=== PATIENT | female | born 1995 | race Caucasian/White ===

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

== ENCOUNTER 2017-01-30 22:54 | Emergency (ER) | payer SELFPAY ==
[~2017-01-30] VITALS: Ht 154.9 cm; Wt 61.7 kg
[2017-01-30 23:02] VITALS: BP 105/77
[2017-01-30] MEDS ORDERED: ZYRTEC10 M3 PO (23:02)
[2017-01-30 23:31] LABS: BASO # 0.1 10*3/uL (0.0-0.1); BASO % 0.8 % (0.0-1.0); EOS # 0.2 10*3/uL (0.0-0.4); EOS % 1.8 % (1.0-4.0); HEMATOCRIT 36.3 % (37.0-47.0); HEMOGLOBIN 11.8 g/dl (12.0-16.0); LYMPH # 2.9 10*3/uL (1.3-4.4); LYMPH % 31.9 % (27.0-41.0); MEAN CORPUSCULAR HGB 30.9 pg (27.0-31.0); MEAN CORPUSCULAR HGB CONC 32.5 g/dl (33.0-37.0); MEAN PLATELET VOLUME 10.1 fl (9.6-12.3); MONO # 0.7 10*3/uL (0.1-1.0); MONO % 7.4 % (3.0-9.0); NEUT # 5.2 10*3/uL (2.3-7.9); NEUT % 57.9 % (47.0-73.0); PLATELET COUNT AUTOMATED 281 10*3/uL (130-400); RED BLOOD COUNT 3.82 10*6/uL (4.10-5.10); RED CELL DISTRI WIDTH 12.5 % (0-14.5); WHITE BLOOD COUNT 8.9 10*3/uL (4.8-10.8)
[2017-01-30 23:46] LABS: ALBUMIN 3.9 gm/dl (3.1-4.5); ALKALINE PHOSPHATASE 85 U/L (45-117); BILIRUBIN, TOTAL 0.1 mg/dl (0.2-1.0); BUN 16 mg/dl (7-24); C-REACTIVE PROTEIN < 0.29 MG/DL (0-0.3); CARBON DIOXIDE 28 mmol/L (21-32); CHLORIDE 103 mmol/L (98-107); EST GLOM FILT AFRICAN AMERICAN > 60 ml/min; GLUCOSE 97 mg/dL (65-99); POTASSIUM 3.7 mmol/L (3.5-5.1); SGOT/AST 20 IU/L (3-35); SGPT/ALT 25 U/L (12-78); SODIUM 142 mmol/L (136-145); TOTAL PROTEIN 6.9 gm/dL (6.4-8.2)
[2017-01-31] MEDS ORDERED: Motrin,Rufen400 MG PO (01:16)
[2017-01-31] MEDS ORDERED: ZOFRAN ODT4 MG SL (01:19)
[2017-01-31 01:35] LABS: BILIRUBIN 1+ (NEGATIVE); BLOOD 3+ (NEGATIVE); CLARITY SL CLOUDY (CLEAR); COLOR ORANGE (YELLOW); GLUCOSE TRACE (NEGATIVE); KETONE TRACE (NEGATIVE); LEUKO ESTERASE NEGATIVE (NEGATIVE); NITRITE POSITIVE (NEGATIVE); PROTEIN 2+ (NEGATIVE); UROBILINOGEN >= 8.0 E.U./dl (0.2-1.0)
[2017-01-31 01:48] LABS: BACTERIA TRACE; RBC 31-40 rbc/hpf (0-2); URINE REFLEX COMMENT YES (NO); WBC 0-2 wbc/hpf (0-5)
== END 2017-01-31 01:45 | disposition home or self-care (01) ==
LOC: ED 22:54
PROVIDERS: Emergency Medicine Emergency Medical Services
DX: S39.012A Strain of muscle, fascia and tendon of lower back, initial encounter (principal); K29.00 Acute gastritis without bleeding; Z88.1 Allergy status to other antibiotic agents; Z79.899 Other long term (current) drug therapy; X58.XXXA Exposure to other specified factors, initial encounter; Y93.89 Activity, other specified; Y92.89 Other specified places as the place of occurrence of the external cause; Y99.9 Unspecified external cause status

== ENCOUNTER 2017-03-14 15:16 | Emergency (ER) | payer SELFPAY ==
[~2017-03-14] VITALS: Wt 54.4 kg
[~2017-03-14 15:16] MED LIST changes: +ZYRTEC10 M3 PO
[2017-03-14 15:24] VITALS: BP 153/67
[2017-03-14 16:01] LABS: BILIRUBIN NEGATIVE (NEGATIVE); BLOOD TRACE-INTACT (NEGATIVE); CLARITY SL CLOUDY (CLEAR); COLOR YELLOW (YELLOW); GLUCOSE NEGATIVE (NEGATIVE); KETONE TRACE (NEGATIVE); LEUKO ESTERASE 1+ (NEGATIVE); NITRITE POSITIVE (NEGATIVE)
[2017-03-14 16:11] LABS: MUCOUS 1+
[2017-03-14 16:12] LABS: BACTERIA 2+
== END 2017-03-15 07:13 | disposition home or self-care (01) ==
LOC: ED 15:16
PROVIDERS: Physician Assistant
DX: N30.01 Acute cystitis with hematuria (principal); Z79.899 Other long term (current) drug therapy; Z88.8 Allergy status to other drugs, medicaments and biological substances; Z88.1 Allergy status to other antibiotic agents

== ENCOUNTER 2017-04-09 15:40 | Emergency (ER) | payer SELFPAY ==
[~2017-04-09] VITALS: Wt 56.7 kg
[2017-04-09 16:18] VITALS: BP 118/74
[2017-04-09] MEDS ORDERED: Motrin,Rufen800 MG PO (18:18)
== END 2017-04-09 18:23 | disposition home or self-care (01) ==
LOC: ED 15:40
DX: S93.401A Sprain of unspecified ligament of right ankle, initial encounter (principal); Z88.1 Allergy status to other antibiotic agents; W18.39XA Other fall on same level, initial encounter; Y93.89 Activity, other specified; Y92.89 Other specified places as the place of occurrence of the external cause; Y99.8 Other external cause status

== ENCOUNTER 2017-04-30 00:39 | Emergency (ER) | payer SELFPAY ==
[~2017-04-30] VITALS: Ht 162.5 cm; Wt 56.7 kg
[2017-04-30 00:43] VITALS: BP 141/76
[2017-04-30] MEDS ORDERED: BROMFED DM COU118 M2 PO (01:37)
== END 2017-04-30 01:49 | disposition home or self-care (01) ==
LOC: ED 00:39
DX: J06.9 Acute upper respiratory infection, unspecified (principal); Z88.1 Allergy status to other antibiotic agents

== ENCOUNTER 2017-05-04 18:57 | Emergency (ER) | payer SELFPAY ==
[~2017-05-04] VITALS: Ht 162.5 cm; Wt 56.7 kg
[~2017-05-04 18:57] MED LIST changes: +BROMFED DM COU118 M2 PO
[2017-05-04 19:01] VITALS: BP 138/90
== END 2017-05-04 21:10 | disposition home or self-care (01) ==
LOC: ED 18:57
DX: S13.9XXA Sprain of joints and ligaments of unspecified parts of neck, initial encounter (principal); S09.90XA Unspecified injury of head, initial encounter; R07.81 Pleurodynia; M25.511 Pain in right shoulder; M25.512 Pain in left shoulder; Z88.1 Allergy status to other antibiotic agents; Y04.0XXA Assault by unarmed brawl or fight, initial encounter; Y93.89 Activity, other specified; Y92.410 Unspecified street and highway as the place of occurrence of the external cause; Y99.8 Other external cause status

== ENCOUNTER 2017-06-11 00:28 | Emergency (ER) | payer SELFPAY ==
[~2017-06-11] VITALS: Ht 162.5 cm; Wt 56.7 kg
[2017-06-11 00:35] VITALS: BP 146/83
[2017-06-11] MEDS ORDERED: Motrin,Rufen800 MG PO (01:20)
== END 2017-06-11 01:46 | disposition home or self-care (01) ==
LOC: ED 00:28
DX: M79.671 Pain in right foot (principal); Z88.1 Allergy status to other antibiotic agents; Z88.8 Allergy status to other drugs, medicaments and biological substances

== ENCOUNTER 2017-08-17 08:58 | Emergency (ER) | payer SELFPAY ==
[~2017-08-17] VITALS: Wt 55.3 kg
[2017-08-17 09:10] VITALS: BP 115/76
[2017-08-17 09:26] LABS: BASO # 0.1 10*3/uL (0.0-0.1); BASO % 0.7 % (0.0-1.0); EOS % 0.3 % (1.0-4.0); HEMATOCRIT 38.3 % (37.0-47.0); HEMOGLOBIN 12.8 g/dl (12.0-16.0); LYMPH # 0.8 10*3/uL (1.3-4.4); LYMPH % 10.9 % (27.0-41.0); MEAN CELL VOLUME 93.4 fl (81.0-99.0); MEAN CORPUSCULAR HGB 31.2 pg (27.0-31.0); MEAN CORPUSCULAR HGB CONC 33.4 g/dl (33.0-37.0); MEAN PLATELET VOLUME 9.9 fl (9.6-12.3); MONO # 1.2 10*3/uL (0.1-1.0); MONO % 15.6 % (3.0-9.0); NEUT # 5.5 10*3/uL (2.3-7.9); NEUT % 72.4 % (47.0-73.0); PLATELET COUNT AUTOMATED 244 10*3/uL (130-400); RED CELL DISTRI WIDTH 11.9 % (0-14.5); WHITE BLOOD COUNT 7.5 10*3/uL (4.8-10.8)
[2017-08-17 09:41] LABS: ALBUMIN 4.1 gm/dl (3.1-4.5); ALKALINE PHOSPHATASE 82 U/L (45-117); BUN 7 mg/dl (7-24); CHLORIDE 103 mmol/L (98-107); CREATININE 0.78 mg/dL (0.55-1.02); POTASSIUM 3.6 mmol/L (3.5-5.1); SGOT/AST 8 IU/L (3-35); SGPT/ALT 12 U/L (12-78); SODIUM 139 mmol/L (136-145); TOTAL PROTEIN 7.3 gm/dL (6.4-8.2)
[2017-08-17] MEDS ORDERED: PREDNISONE10 MG PO (09:48)
[2017-08-17] MEDS ORDERED: ROBITUSSIN DM 105 ML PO (09:48)
[2017-08-17] MEDS ORDERED: FLONASE ALLERG9.9 ML NAS (09:48)
[2017-08-17] MEDS ORDERED: CLARITIN10 MG PO (09:48)
== END 2017-08-17 10:13 | disposition home or self-care (01) ==
LOC: ED 08:58
PROVIDERS: Nurse Practitioner Family
DX: J20.9 Acute bronchitis, unspecified (principal); Z88.8 Allergy status to other drugs, medicaments and biological substances; Z88.1 Allergy status to other antibiotic agents

== ENCOUNTER 2018-01-12 00:59 | Emergency (ER) | payer SELFPAY ==
[~2018-01-12] VITALS: Ht 162.5 cm; Wt 49.9 kg
[~2018-01-12 00:59] MED LIST changes: +FLONASE ALLERG9.9 ML NAS; +PREDNISONE10 MG PO; +ROBITUSSIN DM 105 ML PO
[2018-01-12 01:00] VITALS: BP 118/86
[2018-01-12] MEDS ORDERED: IBUPROFEN600 MG PO (02:20)
== END 2018-01-12 02:23 | disposition home or self-care (01) ==
LOC: ED 00:59
DX: S63.501A Unspecified sprain of right wrist, initial encounter (principal); Z79.899 Other long term (current) drug therapy; Z88.6 Allergy status to analgesic agent; Z88.1 Allergy status to other antibiotic agents; W19.XXXA Unspecified fall, initial encounter; Y93.89 Activity, other specified; Y92.89 Other specified places as the place of occurrence of the external cause; Y99.9 Unspecified external cause status

== ENCOUNTER 2018-05-11 09:07 | Emergency (ER) | payer MEDICARE, MEDICAID, OTHER ==
[~2018-05-11] VITALS: Ht 162.5 cm; Wt 57.2 kg
[~2018-05-11 09:07] MED LIST changes: +CEPHALEXIN500 M1 PO; +CIPRO500 MG PO; +DOXYCYCLINE100 M3 PO; +IBU800 MG PO; +IBUPROFEN600 MG PO; +PERCOCET 5-3251 EACH PO
[2018-05-11 09:10] VITALS: BP 144/89
[2018-05-11] MEDS ORDERED: CHLORZOXAZONE500 M2 PO (09:20)
[2018-05-11] MEDS ORDERED: NAPROSYN500 MG PO (09:20)
== END 2018-05-11 10:42 | disposition home or self-care (01) ==
LOC: ED 09:07
DX: T14.8XXA Other injury of unspecified body region, initial encounter (principal); R03.0 Elevated blood-pressure reading, without diagnosis of hypertension; R55 Syncope and collapse; G89.29 Other chronic pain; Z88.1 Allergy status to other antibiotic agents; Z88.2 Allergy status to sulfonamides; Z87.442 Personal history of urinary calculi; V49.9XXA Car occupant (driver) (passenger) injured in unspecified traffic accident, initial encounter; Y93.I9 Activity, other involving external motion; Y92.488 Other paved roadways as the place of occurrence of the external cause; Y99.8 Other external cause status

== ENCOUNTER 2018-05-14 14:43 | Emergency (ER) | payer MEDICARE, MEDICAID ==
[~2018-05-14] VITALS: Ht 162.5 cm; Wt 57.2 kg
[~2018-05-14 14:43] MED LIST changes: +CHLORZOXAZONE500 M2 PO; +NAPROSYN500 MG PO
[2018-05-14 14:44] VITALS: BP 146/101
[2018-05-14] MEDS ORDERED: ZYRTEC10 MG PO (15:53)
[2018-05-14] MEDS ORDERED: FLONASE ALLERG9.9 ML NAS (15:53)
== END 2018-05-14 16:00 | disposition home or self-care (01) ==
LOC: ED 14:43
DX: S50.12XA Contusion of left forearm, initial encounter (principal); J30.9 Allergic rhinitis, unspecified; G89.29 Other chronic pain; Z88.1 Allergy status to other antibiotic agents; Z88.2 Allergy status to sulfonamides; Z79.1 Long term (current) use of non-steroidal anti-inflammatories (NSAID); Z79.899 Other long term (current) drug therapy; Z87.442 Personal history of urinary calculi; W10.8XXA Fall (on) (from) other stairs and steps, initial encounter; Y93.89 Activity, other specified; Y92.89 Other specified places as the place of occurrence of the external cause; Y99.8 Other external cause status

== ENCOUNTER 2018-06-26 18:09 | Emergency (ER) | payer MEDICARE, MEDICAID ==
[~2018-06-26] VITALS: Ht 162.5 cm; Wt 59.0 kg
[2018-06-26 18:13] VITALS: BP 123/65
== END 2018-06-26 21:04 | disposition home or self-care (01) ==
LOC: ED 18:09
DX: M25.562 Pain in left knee (principal); R20.0 Anesthesia of skin; R20.2 Paresthesia of skin; Z88.1 Allergy status to other antibiotic agents; Z88.2 Allergy status to sulfonamides; Z79.899 Other long term (current) drug therapy

== ENCOUNTER 2018-08-17 01:39 | Emergency (ER) | payer MEDICARE, MEDICAID ==
[~2018-08-17] VITALS: Ht 162.5 cm; Wt 57.2 kg
[2018-08-17 01:40] VITALS: BP 115/64
[2018-08-17] MEDS ORDERED: BROMFED DM COU118 M2 PO (01:55)
== END 2018-08-17 01:57 | disposition home or self-care (01) ==
LOC: ED 01:39
DX: J06.9 Acute upper respiratory infection, unspecified (principal); Z88.1 Allergy status to other antibiotic agents; Z88.2 Allergy status to sulfonamides

== ENCOUNTER 2018-10-14 22:32 | Emergency (ER) | payer MEDICARE, MEDICAID ==
[~2018-10-14] VITALS: Ht 162.5 cm; Wt 62.6 kg
[2018-10-14 22:35] VITALS: BP 125/76
[2018-10-15] MEDS ORDERED: TESSALON PERLE100 M1 PO (00:43)
[2019-02-14] MEDS ORDERED: VITAMIN D5000 UNI1 PO (10:46)
[2019-02-14] MEDS ORDERED: MECLIZINE HCL25 M2 PO (10:46)
[2019-02-14] MEDS ORDERED: CIPRO500 MG PO (10:46)
[2019-02-14] MEDS ORDERED: FLAGYL500 MG PO (10:46)
== END 2018-10-15 01:08 | disposition home or self-care (01) ==
LOC: ED 22:32
DX: S80.02XA Contusion of left knee, initial encounter (principal); J06.9 Acute upper respiratory infection, unspecified; Z88.1 Allergy status to other antibiotic agents; Z88.2 Allergy status to sulfonamides; X58.XXXA Exposure to other specified factors, initial encounter; Y93.89 Activity, other specified; Y92.89 Other specified places as the place of occurrence of the external cause; Y99.8 Other external cause status

== ENCOUNTER 2019-01-23 11:07 | Emergency (ER) | payer MEDICARE, OTHER ==
[~2019-01-23] VITALS: Ht 162.5 cm; Wt 61.2 kg
[2019-01-23 11:07] VITALS: BP 114/66
[~2019-01-23 11:07] MED LIST changes: +TESSALON PERLE100 M1 PO
[2019-01-23] MEDS ORDERED: CEPHALEXIN500 M1 PO (12:27)
[2019-02-14] MEDS ORDERED: CIPRO500 MG PO (10:46)
[2019-02-14] MEDS ORDERED: VITAMIN D5000 UNI1 PO (10:46)
[2019-02-14] MEDS ORDERED: FLAGYL500 MG PO (10:46)
[2019-02-14] MEDS ORDERED: MECLIZINE HCL25 M2 PO (10:46)
== END 2019-01-23 12:43 | disposition home or self-care (01) ==
LOC: ED 11:07
DX: S91.332A Puncture wound without foreign body, left foot, initial encounter (principal); Z88.8 Allergy status to other drugs, medicaments and biological substances; Z88.1 Allergy status to other antibiotic agents; Z88.2 Allergy status to sulfonamides; W25.XXXA Contact with sharp glass, initial encounter; Y93.89 Activity, other specified; Y92.89 Other specified places as the place of occurrence of the external cause; Y99.8 Other external cause status

== ENCOUNTER 2019-02-25 01:05 | Emergency (ER) | payer MEDICARE ==
[~2019-02-25] VITALS: Ht 162.5 cm; Wt 61.2 kg
[~2019-02-25 01:05] MED LIST changes: +FLAGYL500 MG PO; +MECLIZINE HCL25 M2 PO; +VITAMIN D5000 UNI1 PO
[2019-02-25 01:06] VITALS: BP 128/73
[2019-02-25] MEDS ORDERED: NEOSPORIN + P14.2 GM T (01:17)
== END 2019-02-25 01:22 | disposition home or self-care (01) ==
LOC: ED 01:05
DX: S61.217A Laceration without foreign body of left little finger without damage to nail, initial encounter (principal); Z88.1 Allergy status to other antibiotic agents; Z88.2 Allergy status to sulfonamides; W26.0XXA Contact with knife, initial encounter; Y93.89 Activity, other specified; Y92.89 Other specified places as the place of occurrence of the external cause; Y99.8 Other external cause status

== ENCOUNTER 2019-03-22 11:43 | Emergency (ER) | payer MEDICARE ==
[~2019-03-22] VITALS: Ht 162.5 cm; Wt 61.2 kg
[~2019-03-22 11:43] MED LIST changes: +NEOSPORIN + P14.2 GM T
[2019-03-22 11:46] VITALS: BP 140/77
[2019-03-22] MEDS ORDERED: AMOXICILLIN500 M2 PO (12:29)
[2019-03-22] MEDS ORDERED: ROBITUSSIN DM 105 ML PO (12:29)
[2019-03-22] MEDS ORDERED: FLONASE ALLERG9.9 ML NAS (12:29)
== END 2019-03-22 12:42 | disposition home or self-care (01) ==
LOC: ED 11:43
DX: J01.90 Acute sinusitis, unspecified (principal); F17.200 Nicotine dependence, unspecified, uncomplicated; Z88.1 Allergy status to other antibiotic agents; Z88.2 Allergy status to sulfonamides; Z79.899 Other long term (current) drug therapy; Z79.2 Long term (current) use of antibiotics

== ENCOUNTER 2019-04-19 04:33 | Emergency (ER) | payer MEDICARE, MEDICAID ==
[~2019-04-19] VITALS: Wt 57.2 kg
[2019-04-19 04:33] VITALS: BP 121/76
== END 2019-04-19 05:30 | disposition home or self-care (01) ==
LOC: ED 04:33
DX: S70.11XA Contusion of right thigh, initial encounter (principal); S60.221A Contusion of right hand, initial encounter; Z88.1 Allergy status to other antibiotic agents; Z88.2 Allergy status to sulfonamides; W18.39XA Other fall on same level, initial encounter; Y93.89 Activity, other specified; Y92.89 Other specified places as the place of occurrence of the external cause; Y99.8 Other external cause status

== ENCOUNTER 2019-08-08 19:21 | Emergency (ER) | payer MEDICARE ==
[~2019-08-08] VITALS: Ht 162.5 cm; Wt 57.2 kg
[2019-08-08 19:25] VITALS: BP 124/83
== END 2019-08-08 22:10 | disposition home or self-care (01) ==
LOC: ED 19:21
DX: S16.1XXA Strain of muscle, fascia and tendon at neck level, initial encounter (principal); M54.5 Low back pain; M25.561 Pain in right knee; M79.651 Pain in right thigh; Z88.1 Allergy status to other antibiotic agents; Z88.2 Allergy status to sulfonamides; W01.0XXA Fall on same level from slipping, tripping and stumbling without subsequent striking against object, initial encounter; Y93.89 Activity, other specified; Y92.89 Other specified places as the place of occurrence of the external cause; Y99.8 Other external cause status

== ENCOUNTER 2019-11-05 19:58 | Emergency (ER) | payer MEDICARE ==
[~2019-11-05] VITALS: Ht 162.5 cm; Wt 59.0 kg
[2019-11-05 20:03] VITALS: BP 128/91
[2019-11-05 20:35] LABS: CLARITY SL CLOUDY (CLEAR); COLOR YELLOW (YELLOW); GLUCOSE NEGATIVE (NEGATIVE)
[2019-11-05 20:37] LABS: BILIRUBIN NEGATIVE (NEGATIVE); BLOOD 2+ (NEGATIVE); KETONE NEGATIVE (NEGATIVE); LEUKO ESTERASE TRACE (NEGATIVE); NITRITE NEGATIVE (NEGATIVE); UROBILINOGEN 0.2 E.U./dl (0.2-1.0)
[2019-11-05 20:38] LABS: BACTERIA 2+; EPITHELIAL CELLS TNTC; YEAST 1+
[2019-11-05] MEDS ORDERED: ZOFRAN4 MG PO (20:55)
== END 2019-11-05 21:00 | disposition home or self-care (01) ==
LOC: ED 19:58
PROVIDERS: Physician Assistant
DX: R11.10 Vomiting, unspecified (principal); F32.9 Major depressive disorder, single episode, unspecified; Z88.8 Allergy status to other drugs, medicaments and biological substances; Z88.2 Allergy status to sulfonamides; Z79.899 Other long term (current) drug therapy; Z79.2 Long term (current) use of antibiotics

== ENCOUNTER 2019-11-29 22:38 | Emergency (ER) | payer MEDICARE ==
[~2019-11-29] VITALS: Ht 162.5 cm; Wt 72.6 kg
[2019-11-29 22:43] VITALS: BP 128/79
[2019-11-29 22:59] LABS: BILIRUBIN 1+ (NEGATIVE); BLOOD 3+ (NEGATIVE); CLARITY CLOUDY (CLEAR); COLOR YELLOW (YELLOW); GLUCOSE NEGATIVE (NEGATIVE); KETONE NEGATIVE (NEGATIVE); LEUKO ESTERASE NEGATIVE (NEGATIVE); NITRITE NEGATIVE (NEGATIVE); UROBILINOGEN 0.2 E.U./dl (0.2-1.0)
[2019-11-29 23:03] LABS: RBC TNTC rbc/hpf (0-2)
[2019-11-29 23:12] LABS: BASO # 0.1 10*3/uL (0.0-0.1); BASO % 0.8 % (0.0-1.0); EOS # 0.1 10*3/uL (0.0-0.4); EOS % 1.4 % (1.0-4.0); HEMATOCRIT 37.9 % (37.0-47.0); LYMPH # 2.2 10*3/uL (1.3-4.4); LYMPH % 26.9 % (27.0-41.0); MEAN CELL VOLUME 93.8 fl (81.0-99.0); MEAN CORPUSCULAR HGB 30.7 pg (27.0-31.0); MEAN CORPUSCULAR HGB CONC 32.7 g/dl (33.0-37.0); MEAN PLATELET VOLUME 10.2 fl (9.6-12.3); MONO # 0.8 10*3/uL (0.1-1.0); MONO % 9.7 % (3.0-9.0); PLATELET COUNT AUTOMATED 308 10*3/uL (130-400); RED BLOOD COUNT 4.04 10*6/uL (4.10-5.10); RED CELL DISTRI WIDTH 12.4 % (0-14.5); WHITE BLOOD COUNT 8.3 10*3/uL (4.8-10.8)
[2019-11-29 23:37] LABS: ALKALINE PHOSPHATASE 89 U/L (45-117); BUN 13 mg/dl (7-24); CHLORIDE 109 mmol/L (98-107); CREATININE 0.84 mg/dL (0.55-1.02); POTASSIUM 3.7 mmol/L (3.5-5.1); SGOT/AST 19 IU/L (3-35); SGPT/ALT 20 U/L (12-78); SODIUM 140 mmol/L (136-145); TOTAL PROTEIN 7.4 gm/dL (6.4-8.2)
[2019-11-29 23:39] LABS: B-hCG (QUALITATIVE) NEGATIVE (NEGATIVE)
[2019-11-30] MEDS ORDERED: Motrin,Rufen800 MG PO (00:16)
== END 2019-11-30 00:44 | disposition home or self-care (01) ==
LOC: ED 22:38
PROVIDERS: Emergency Medicine Emergency Medical Services
DX: S39.012A Strain of muscle, fascia and tendon of lower back, initial encounter (principal); Z88.1 Allergy status to other antibiotic agents; Z88.2 Allergy status to sulfonamides; Z87.440 Personal history of urinary (tract) infections; Z88.8 Allergy status to other drugs, medicaments and biological substances; X58.XXXA Exposure to other specified factors, initial encounter; Y93.89 Activity, other specified; Y92.89 Other specified places as the place of occurrence of the external cause; Y99.8 Other external cause status

== ENCOUNTER 2020-02-15 12:01 | Emergency (ER) | payer MEDICARE ==
[~2020-02-15] VITALS: Ht 162.5 cm; Wt 59.0 kg
[2020-02-15 12:09] VITALS: BP 120/73
[2020-02-15] MEDS ORDERED: METHOCARBAMOL500 M1 PO (15:23)
[2020-02-15] MEDS ORDERED: NAPROSYN500 MG PO (15:23)
== END 2020-02-15 16:16 | disposition home or self-care (01) ==
LOC: ED 12:01
DX: M43.6 Torticollis (principal); Z88.1 Allergy status to other antibiotic agents; Z88.2 Allergy status to sulfonamides

== ENCOUNTER 2020-03-05 05:43 | Emergency (ER) | payer MEDICARE ==
[~2020-03-05] VITALS: Ht 162.5 cm; Wt 57.2 kg
[~2020-03-05 05:43] MED LIST changes: +METHOCARBAMOL500 M1 PO
[2020-03-05 05:53] VITALS: BP 137/79
[2020-03-05 06:34] LABS: BASO # 0.1 10*3/uL (0.0-0.1); BASO % 0.5 % (0.0-1.0); EOS # 0.1 10*3/uL (0.0-0.4); EOS % 1.1 % (1.0-4.0); HEMATOCRIT 38.7 % (37.0-47.0); LYMPH # 2.1 10*3/uL (1.3-4.4); LYMPH % 22.8 % (27.0-41.0); MEAN CELL VOLUME 92.8 fl (81.0-99.0); MEAN CORPUSCULAR HGB 30.2 pg (27.0-31.0); MEAN CORPUSCULAR HGB CONC 32.6 g/dl (33.0-37.0); MEAN PLATELET VOLUME 10.2 fl (9.6-12.3); MONO # 0.9 10*3/uL (0.1-1.0); MONO % 9.5 % (3.0-9.0); NEUT # 6.2 10*3/uL (2.3-7.9); NEUT % 65.8 % (47.0-73.0); PLATELET COUNT AUTOMATED 292 10*3/uL (130-400); RED BLOOD COUNT 4.17 10*6/uL (4.10-5.10); RED CELL DISTRI WIDTH 12.2 % (0-14.5); WHITE BLOOD COUNT 9.4 10*3/uL (4.8-10.8)
[2020-03-05 06:52] LABS: ALKALINE PHOSPHATASE 89 U/L (45-117); BUN 10 mg/dl (7-24); CHLORIDE 109 mmol/L (98-107); CREATININE 0.93 mg/dL (0.55-1.02); LIPASE 73 U/L (73-393); POTASSIUM 3.4 mmol/L (3.5-5.1); SGOT/AST 9 IU/L (3-35); SGPT/ALT 14 U/L (12-78); SODIUM 140 mmol/L (136-145)
[2020-03-05 07:02] LABS: BACTERIA 3+; BILIRUBIN NEGATIVE (NEGATIVE); BLOOD 2+ (NEGATIVE); CALCIUM OXALATE CRYSTALS 2+; CLARITY CLOUDY (CLEAR); COLOR YELLOW (YELLOW); EPITHELIAL CELLS 21-30; GLUCOSE NEGATIVE (NEGATIVE); KETONE NEGATIVE (NEGATIVE); LEUKO ESTERASE NEGATIVE (NEGATIVE); NITRITE NEGATIVE (NEGATIVE); RBC 16-20 rbc/hpf (0-2); UROBILINOGEN 0.2 E.U./dl (0.2-1.0)
[2020-03-05] MEDS ORDERED: CEPHALEXIN500 M1 PO (08:17)
== END 2020-03-05 08:45 | disposition home or self-care (01) ==
LOC: ED 05:43
PROVIDERS: Emergency Medicine
DX: N39.0 Urinary tract infection, site not specified (principal); R11.2 Nausea with vomiting, unspecified; R19.7 Diarrhea, unspecified; Z88.1 Allergy status to other antibiotic agents; Z88.2 Allergy status to sulfonamides

== ENCOUNTER 2020-07-17 18:41 | Emergency (ER) | payer MEDICARE ==
[2020-07-17 18:48] VITALS: BP 126/74
[2020-07-17] MEDS ORDERED: Motrin,Rufen800 MG PO (21:36)
== END 2020-07-17 21:44 | disposition home or self-care (01) ==
LOC: ED 18:41
DX: S46.911A Strain of unspecified muscle, fascia and tendon at shoulder and upper arm level, right arm, initial encounter (principal); Z88.1 Allergy status to other antibiotic agents; Z88.2 Allergy status to sulfonamides; X58.XXXA Exposure to other specified factors, initial encounter; Y93.H1 Activity, digging, shoveling and raking; Y92.89 Other specified places as the place of occurrence of the external cause; Y99.8 Other external cause status

== ENCOUNTER 2021-10-16 18:41 | Emergency (ER) | payer MEDICARE ==
[~2021-10-16] VITALS: Ht 162.5 cm; Wt 59.0 kg
[2021-10-16 18:54] VITALS: BP 130/82
[2021-10-16 19:15] LABS: BASO % 0.5 % (0.0-1.0); EOS # 0.1 10*3/uL (0.0-0.4); EOS % 0.6 % (1.0-4.0); HEMATOCRIT 39.7 % (37.0-47.0); LYMPH # 1.7 10*3/uL (1.3-4.4); LYMPH % 20.6 % (27.0-41.0); MEAN CELL VOLUME 87.1 fl (81.0-99.0); MEAN CORPUSCULAR HGB 29.8 pg (27.0-31.0); MEAN CORPUSCULAR HGB CONC 34.3 g/dl (33.0-37.0); MEAN PLATELET VOLUME 10.4 fl (9.6-12.3); MONO # 0.8 10*3/uL (0.1-1.0); MONO % 9.3 % (3.0-9.0); NEUT # 5.7 10*3/uL (2.3-7.9); NEUT % 68.8 % (47.0-73.0); PLATELET COUNT AUTOMATED 313 10*3/uL (130-400); RED BLOOD COUNT 4.56 10*6/uL (4.10-5.10); RED CELL DISTRI WIDTH 11.9 % (0-14.5); WHITE BLOOD COUNT 8.2 10*3/uL (4.8-10.8)
[2021-10-16 19:31] LABS: BILIRUBIN Negative (Negative); BLOOD 1+ (Negative); CLARITY Turbid (Clear); COLOR Dark Yellow (Yellow); GLUCOSE Negative (Negative); KETONE 1+ (Negative); LEUKO ESTERASE 2+ (Negative); NITRITE Negative (Negative); PH 5.5 (4.5-8.0); SPECIFIC GRAVITY >= 1.030 (1.001-1.030)
[2021-10-16 19:35] LABS: ALKALINE PHOSPHATASE 93 U/L (45-117); BUN 9 mg/dl (7-24); CHLORIDE 106 mmol/L (98-107); POTASSIUM 3.4 mmol/L (3.5-5.1); SGOT/AST 10 IU/L (3-35); SGPT/ALT 17 U/L (12-78); SODIUM 139 mmol/L (136-145); TOTAL PROTEIN 7.6 gm/dL (6.4-8.2)
[2021-10-16 19:43] LABS: BACTERIA 2+; CALCIUM OXALATE CRYSTALS 2+; EPITHELIAL CELLS 16-20; WBC 21-30 wbc/hpf (0-5)
[2021-10-16] MEDS ORDERED: CEPHALEXIN500 M1 PO (19:52)
[2021-10-16] MEDS ORDERED: ZOFRAN4 MG PO (19:57)
== END 2021-10-16 20:17 | disposition home or self-care (01) ==
LOC: ED 18:41
PROVIDERS: Nurse Practitioner Family
DX: N39.0 Urinary tract infection, site not specified (principal); Z20.822 Contact with and (suspected) exposure to COVID-19; A64 Unspecified sexually transmitted disease; A59.9 Trichomoniasis, unspecified; Z88.1 Allergy status to other antibiotic agents

== ENCOUNTER 2022-06-26 20:43 | Emergency (ER) | payer MEDICARE ==
[~2022-06-26] VITALS: Ht 162.5 cm; Wt 59.0 kg
[2022-06-26 22:04] LABS: BASO # 0.1 10*3/uL (0.0-0.1); BASO % 0.7 % (0.0-1.0); EOS % 0.3 % (1.0-4.0); HEMATOCRIT 39.1 % (37.0-47.0); LYMPH % 21.7 % (27.0-41.0); MEAN CELL VOLUME 90.9 fl (81.0-99.0); MEAN CORPUSCULAR HGB 30.2 pg (27.0-31.0); MEAN CORPUSCULAR HGB CONC 33.2 g/dl (33.0-37.0); MEAN PLATELET VOLUME 10.2 fl (9.6-12.3); MONO # 0.7 10*3/uL (0.1-1.0); MONO % 7.6 % (3.0-9.0); NEUT # 6.3 10*3/uL (2.3-7.9); NEUT % 69.5 % (47.0-73.0); PLATELET COUNT AUTOMATED 321 10*3/uL (130-400); RED CELL DISTRI WIDTH 12.4 % (0-14.5)
[2022-06-26 22:20] LABS: ALKALINE PHOSPHATASE 95 U/L (46-116); BUN 8 mg/dl (9-23); CHLORIDE 104 mmol/L (98-107); CREATININE 0.76 mg/dL (0.55-1.02); POTASSIUM 3.7 mmol/L (3.4-5.1); SODIUM 138 mmol/L (136-145)
[2022-06-26 22:21] LABS: TOTAL PROTEIN 7.4 gm/dL (6.0-8.0)
[2022-06-26 22:22] VITALS: BP 122/73
[2022-06-26 22:23] LABS: ETHYL ALCOHOL < 3.0 mg/dl (<3); SGPT/ALT < 7 U/L (10-49)
[2022-06-26 22:56] LABS: URINE AMPHETAMINES Negative (1000ng/ml); URINE BARBITURATES Negative (200ng/ml); URINE BENZODIAZEPINES Negative (200ng/ml); URINE CANNABINOIDS (THC) Negative (50ng/ml); URINE COCAINE Negative (300ng/ml); URINE METHADONE Negative (300ng/ml); URINE OPIATES Negative (300ng/ml); URINE PHENCYCLIDINE Negative (25ng/ml)
[2022-06-26] MEDS ORDERED: PROMETHAZINE HC25 M1 PO (23:23)
[2022-06-26] MEDS ORDERED: CEFDINIR300 MG PO (23:23)
== END 2022-06-26 23:45 | disposition home or self-care (01) ==
LOC: ED 20:43
PROVIDERS: Emergency Medicine
DX: T39.1X1A Poisoning by 4-Aminophenol derivatives, accidental (unintentional), initial encounter (principal); J06.9 Acute upper respiratory infection, unspecified; J01.90 Acute sinusitis, unspecified; R42 Dizziness and giddiness; Z88.1 Allergy status to other antibiotic agents; Y92.89 Other specified places as the place of occurrence of the external cause

== ENCOUNTER 2022-07-02 18:53 | Emergency (ER) | payer MEDICARE ==
[~2022-07-02] VITALS: Wt 59.0 kg
[~2022-07-02 18:53] MED LIST changes: +CEFDINIR300 MG PO; +PROMETHAZINE HC25 M1 PO
[2022-07-02 18:58] VITALS: BP 140/86
[2022-07-02] MEDS ORDERED: ONDANSETRON4 MG SL (22:37)
== END 2022-07-02 22:44 | disposition home or self-care (01) ==
LOC: ED 18:53
DX: B34.9 Viral infection, unspecified (principal); Z20.822 Contact with and (suspected) exposure to COVID-19; Z88.1 Allergy status to other antibiotic agents

== ENCOUNTER 2023-02-08 21:33 | Emergency (ER) | payer MEDICARE ==
[~2023-02-08] VITALS: Ht 162.5 cm; Wt 75.3 kg
[2023-02-08 21:33] VITALS: BP 122/80
[~2023-02-08 21:33] MED LIST changes: +ONDANSETRON4 MG SL
[2023-02-08 22:09] LABS: BASO # 0.1 10*3/uL (0.0-0.1); BASO % 0.6 % (0.0-1.0); EOS # 0.1 10*3/uL (0.0-0.4); EOS % 0.6 % (1.0-4.0); HEMATOCRIT 39.7 % (37.0-47.0); LYMPH # 2.2 10*3/uL (1.3-4.4); LYMPH % 20.6 % (27.0-41.0); MEAN CELL VOLUME 90.2 fl (81.0-99.0); MEAN CORPUSCULAR HGB 30.5 pg (27.0-31.0); MEAN CORPUSCULAR HGB CONC 33.8 g/dl (33.0-37.0); MEAN PLATELET VOLUME 10.3 fl (9.6-12.3); MONO # 0.9 10*3/uL (0.1-1.0); NEUT # 7.6 10*3/uL (2.3-7.9); NEUT % 69.9 % (47.0-73.0); PLATELET COUNT AUTOMATED 339 10*3/uL (130-400); RED CELL DISTRI WIDTH 12.6 % (0-14.5); WHITE BLOOD COUNT 10.9 10*3/uL (4.8-10.8)
[2023-02-08 22:25] LABS: ACT PARTIAL THROMBO TIME 28.8 SECONDS (20.0-32.1); INTERNATIONAL NORM RATIO 1.1 (2.0-3.5)
[2023-02-08 22:25] LABS: BILIRUBIN Negative (Negative); BLOOD 1+ (Negative); CLARITY Cloudy (Clear); COLOR Yellow (Yellow); GLUCOSE Negative (Negative); KETONE Trace (Negative); LEUKO ESTERASE 1+ (Negative); NITRITE Negative (Negative); PH 5.5 (4.5-8.0); SPECIFIC GRAVITY >= 1.030 (1.001-1.030)
[2023-02-08 22:33] LABS: ALKALINE PHOSPHATASE 105 U/L (46-116); BUN 11 mg/dl (9-23); CHLORIDE 106 mmol/L (98-107); LIPASE 33 U/L (12-53); POTASSIUM 3.4 mmol/L (3.4-5.1); SGPT/ALT 8 U/L (10-49); TOTAL PROTEIN 7.3 gm/dL (6.0-8.0)
[2023-02-08 22:38] LABS: BACTERIA 1+; CALCIUM OXALATE CRYSTALS 1+; MUCOUS 1+
[2023-02-09] MEDS ORDERED: CIPRO500 MG PO (00:04)
== END 2023-02-09 00:26 | disposition home or self-care (01) ==
LOC: ED 21:33
PROVIDERS: Internal Medicine
DX: N39.0 Urinary tract infection, site not specified (principal); R19.7 Diarrhea, unspecified; R11.2 Nausea with vomiting, unspecified; Z88.2 Allergy status to sulfonamides; Z88.8 Allergy status to other drugs, medicaments and biological substances

== ENCOUNTER 2023-06-16 14:39 | Emergency (ER) | payer MEDICARE ==
[~2023-06-16] VITALS: Ht 162.5 cm; Wt 73.0 kg
[2023-06-16 15:08] VITALS: BP 129/78
[2023-06-16 17:00] LABS: BASO # 0.1 10*3/uL (0.0-0.1); BASO % 0.7 % (0.0-1.0); EOS % 0.4 % (1.0-4.0); HEMATOCRIT 41.1 % (37.0-47.0); LYMPH # 1.7 10*3/uL (1.3-4.4); MEAN CELL VOLUME 91.3 fl (81.0-99.0); MEAN CORPUSCULAR HGB 30.7 pg (27.0-31.0); MEAN CORPUSCULAR HGB CONC 33.6 g/dl (33.0-37.0); MEAN PLATELET VOLUME 10.3 fl (9.6-12.3); MONO # 0.8 10*3/uL (0.1-1.0); MONO % 8.4 % (3.0-9.0); NEUT # 6.4 10*3/uL (2.3-7.9); NEUT % 71.4 % (47.0-73.0); PLATELET COUNT AUTOMATED 336 10*3/uL (130-400); RED CELL DISTRI WIDTH 12.4 % (0-14.5); WHITE BLOOD COUNT 8.9 10*3/uL (4.8-10.8)
[2023-06-16 17:16] LABS: ALKALINE PHOSPHATASE 90 U/L (46-116); BUN 15 mg/dl (9-23); CHLORIDE 107 mmol/L (98-107); POTASSIUM 3.7 mmol/L (3.4-5.1); SGPT/ALT 16 U/L (5-49); TOTAL PROTEIN 7.3 gm/dL (6.0-8.0)
[2023-06-16 18:32] LABS: BILIRUBIN Negative (Negative); BLOOD Trace-Intact (Negative); CLARITY Clear (Clear); COLOR Yellow (Yellow); GLUCOSE Negative (Negative); KETONE Negative (Negative); LEUKO ESTERASE Negative (Negative); NITRITE Negative (Negative); SPECIFIC GRAVITY >= 1.030 (1.001-1.030)
[2023-06-16 18:47] LABS: BACTERIA TRACE; MUCOUS TRACE
== END 2023-06-16 20:08 | disposition home or self-care (01) ==
LOC: ED 14:39
PROVIDERS: Nurse Practitioner Family
DX: R51.9 Headache, unspecified (principal); F32.A Depression, unspecified; F90.9 Attention-deficit hyperactivity disorder, unspecified type; Z88.8 Allergy status to other drugs, medicaments and biological substances; Z88.2 Allergy status to sulfonamides; Z98.890 Other specified postprocedural states

== ENCOUNTER 2023-08-25 10:45 | Emergency (ER) | payer MEDICARE ==
[~2023-08-25] VITALS: Ht 162.5 cm; Wt 73.9 kg
[2023-08-25 11:06] VITALS: BP 129/90
[2023-08-25] MEDS ORDERED: AMOX-CLAV 875-1 EACH PO (11:14)
== END 2023-08-25 11:26 | disposition home or self-care (01) ==
LOC: ED 10:45
DX: S09.90XA Unspecified injury of head, initial encounter (principal); H66.92 Otitis media, unspecified, left ear; Z88.1 Allergy status to other antibiotic agents; Z88.2 Allergy status to sulfonamides; Z87.442 Personal history of urinary calculi; Z87.42 Personal history of other diseases of the female genital tract; W22.8XXA Striking against or struck by other objects, initial encounter; Y93.89 Activity, other specified; Y92.89 Other specified places as the place of occurrence of the external cause; Y99.8 Other external cause status

== ENCOUNTER 2023-10-03 17:03 | Emergency (ER) | payer MEDICARE ==
[~2023-10-03] VITALS: Wt 72.6 kg
[~2023-10-03 17:03] MED LIST changes: +AMOX-CLAV 875-1 EACH PO
[2023-10-03 17:13] VITALS: BP 130/85
[2023-10-03] MEDS ORDERED: BENADRYL ALLERG25 M5 PO (17:34)
[2023-10-03] MEDS ORDERED: PREDNISONE10 M1 PO (17:34)
[2023-10-03] MEDS ORDERED: predniSONE 20 MG TAB PO ONE (17:35)
[2023-10-03] MEDS ORDERED: diphenhydrAMINE hydrochloride 25 MG CAP PO ONE (17:35)
== END 2023-10-03 17:51 | disposition home or self-care (01) ==
LOC: ED 17:03
DX: L25.9 Unspecified contact dermatitis, unspecified cause (principal); Z88.1 Allergy status to other antibiotic agents; Z88.2 Allergy status to sulfonamides

== ENCOUNTER 2023-11-15 19:38 | Emergency (ER) | payer MEDICARE ==
[~2023-11-15] VITALS: Ht 162.5 cm; Wt 72.6 kg
[~2023-11-15 19:38] MED LIST changes: +BENADRYL ALLERG25 M5 PO; +PREDNISONE10 M1 PO
[2023-11-15 19:49] VITALS: BP 126/77
[2023-11-15] MEDS ORDERED: Amoxicillin/Clavulanate Pota 875 MG TAB PO ONE (20:10)
[2023-11-15] MEDS ORDERED: AMOX-CLAV 875-1 EACH PO (20:11)
== END 2023-11-15 20:21 | disposition home or self-care (01) ==
LOC: ED 19:38
DX: H66.92 Otitis media, unspecified, left ear (principal); F32.A Depression, unspecified; F90.9 Attention-deficit hyperactivity disorder, unspecified type; Z88.8 Allergy status to other drugs, medicaments and biological substances; Z88.2 Allergy status to sulfonamides; Z98.890 Other specified postprocedural states

== ENCOUNTER 2024-01-12 17:38 | Emergency (ER) | payer MEDICARE ==
[~2024-01-12] VITALS: Ht 162.5 cm; Wt 72.6 kg
[2024-01-12 17:55] VITALS: BP 139/82
[2024-01-12] MEDS ORDERED: ACETAMINOPHEN 325 MG TAB PO ONE (18:05)
== END 2024-01-12 19:49 | disposition home or self-care (01) ==
LOC: ED 17:38
DX: S60.011A Contusion of right thumb without damage to nail, initial encounter (principal); S09.8XXA Other specified injuries of head, initial encounter; F32.A Depression, unspecified; F90.9 Attention-deficit hyperactivity disorder, unspecified type; Z88.8 Allergy status to other drugs, medicaments and biological substances; Z88.2 Allergy status to sulfonamides; Z98.890 Other specified postprocedural states; W01.198A Fall on same level from slipping, tripping and stumbling with subsequent striking against other object, initial encounter; Y93.89 Activity, other specified; Y92.89 Other specified places as the place of occurrence of the external cause; Y99.8 Other external cause status

== ENCOUNTER → 2024-02-14 | Outpatient (CLI) | payer MEDICARE | END | disposition home or self-care (01) | LOC: LAB 09:41 | PROVIDERS: ATTEND Nurse Practitioner Family | DX: Z20.822 Contact with and (suspected) exposure to COVID-19 (principal) ==

== ENCOUNTER → 2024-03-11 | Outpatient (CLI) | payer MEDICARE | END | disposition home or self-care (01) | LOC: RAD 07:32 | PROVIDERS: ATTEND Nurse Practitioner Family | DX: M54.50 Low back pain, unspecified (principal) ==

== ENCOUNTER 2024-04-05 17:49 | Emergency (ER) | payer MEDICARE ==
[~2024-04-05] VITALS: Ht 162.5 cm; Wt 75.3 kg
[2024-04-05] MEDS ORDERED: Acetaminophen/Oxycodone 5 MG/325 MG TABLET PO ONE (18:10)
[2024-04-05] MEDS ORDERED: MELOXICAM15 MG PO (18:11)
== END 2024-04-05 18:31 | disposition home or self-care (01) ==
LOC: ED 17:49
DX: S93.602A Unspecified sprain of left foot, initial encounter (principal); F32.A Depression, unspecified; F90.9 Attention-deficit hyperactivity disorder, unspecified type; Z88.2 Allergy status to sulfonamides; Z88.8 Allergy status to other drugs, medicaments and biological substances; W11.XXXA Fall on and from ladder, initial encounter; Y93.89 Activity, other specified; Y92.009 Unspecified place in unspecified non-institutional (private) residence as the place of occurrence of the external cause; Y99.8 Other external cause status

== ENCOUNTER 2024-08-30 09:05 | Emergency (ER) | payer OTHER ==
[~2024-08-30] VITALS: Ht 162.5 cm; Wt 77.1 kg
[~2024-08-30 09:05] MED LIST changes: +MELOXICAM15 MG PO
[2024-08-30 09:17] VITALS: BP 146/93
[2024-08-30] MEDS ORDERED: SODIUM CHLORIDE 0.9% 1,000 ML IV ONE (09:45)
[2024-08-30 10:00] LABS: BASO # 0.1 10*3/uL (0.0-0.1); BASO % 0.7 % (0.0-1.0); EOS # 0.2 10*3/uL (0.0-0.4); EOS % 2.8 % (1.0-4.0); MEAN CELL VOLUME 91.7 fl (81.0-99.0); MEAN CORPUSCULAR HGB 29.5 pg (27.0-31.0); MEAN CORPUSCULAR HGB CONC 32.2 g/dl (33.0-37.0); MEAN PLATELET VOLUME 9.9 fl (9.6-12.3); MONO # 0.7 10*3/uL (0.1-1.0); MONO % 8.9 % (3.0-9.0); NEUT # 4.6 10*3/uL (2.3-7.9); NEUT % 55.9 % (47.0-73.0); PLATELET COUNT AUTOMATED 298 10*3/uL (130-400); RED BLOOD COUNT 4.47 10*6/uL (4.10-5.10); RED CELL DISTRI WIDTH 12.5 % (0-14.5); WHITE BLOOD COUNT 8.2 10*3/uL (4.8-10.8)
[2024-08-30] MEDS ORDERED: AVPAK AZITHROM250 M1 PO (10:08)
[2024-08-30 10:24] LABS: ALKALINE PHOSPHATASE 90 U/L (46-116); BUN 10 mg/dl (9-23); CHLORIDE 106 mmol/L (98-107); POTASSIUM 3.8 mmol/L (3.4-5.1); SGPT/ALT 13 U/L (5-49); TOTAL PROTEIN 7.1 gm/dL (6.0-8.0)
== END 2024-08-30 10:31 | disposition home or self-care (01) ==
LOC: ED 09:05
PROVIDERS: Emergency Medicine
DX: J32.9 Chronic sinusitis, unspecified (principal); F32.A Depression, unspecified; Z88.2 Allergy status to sulfonamides; Z88.8 Allergy status to other drugs, medicaments and biological substances; Z20.822 Contact with and (suspected) exposure to COVID-19

== ENCOUNTER → 2024-11-26 | Outpatient (CLI) | payer OTHER ==
[~2024-11-26] MED LIST changes: +AVPAK AZITHROM250 M1 PO; +HEPATITIS B VACCINE RECOMBIN 20 MCG/ML IM SCH
[2024-11-26 10:55] LABS: BASO # 0.1 10*3/uL (0.0-0.1); BASO % 0.7 % (0.0-1.0); EOS # 0.1 10*3/uL (0.0-0.4); EOS % 1.2 % (1.0-4.0); HEMATOCRIT 39.6 % (37.0-47.0); MEAN CELL VOLUME 92.1 fl (81.0-99.0); MEAN CORPUSCULAR HGB 29.5 pg (27.0-31.0); MEAN CORPUSCULAR HGB CONC 32.1 g/dl (33.0-37.0); MEAN PLATELET VOLUME 10.5 fl (9.6-12.3); MONO # 0.7 10*3/uL (0.1-1.0); MONO % 8.8 % (3.0-9.0); NEUT # 5.5 10*3/uL (2.3-7.9); NEUT % 67.4 % (47.0-73.0); PLATELET COUNT AUTOMATED 302 10*3/uL (130-400); WHITE BLOOD COUNT 8.1 10*3/uL (4.8-10.8)
[2024-11-26 10:59] LABS: BILIRUBIN Negative (Negative); BLOOD 3+ (Negative); CLARITY Turbid (Clear); COLOR Red (Yellow); GLUCOSE Negative (Negative); KETONE Trace (Negative); LEUKO ESTERASE 1+ (Negative); NITRITE Negative (Negative); PH 5.5 (4.5-8.0); SPECIFIC GRAVITY >= 1.030 (1.001-1.030)
[2024-11-26 11:13] LABS: BACTERIA 2+
[2024-11-26 11:17] LABS: ALKALINE PHOSPHATASE 89 U/L (46-116); BUN 10 mg/dl (9-23); CHLORIDE 110 mmol/L (98-107); CHOLESTEROL 130 mg/dL (<200); FREE T4 1.11 ng/dl (0.89-1.76); LDL CHOLESTEROL 76 mg/dL (9-159); POTASSIUM 3.9 mmol/L (3.4-5.1); TOTAL PROTEIN 7.1 gm/dL (6.0-8.0); TRIGLYCERIDES 80 mg/dl (<150)
[2024-11-26 11:23] LABS: SGPT/ALT < 7 U/L (5-49)
[2024-11-26 11:45] LABS: VITAMIN D, 25-HYDROXY 23.4 ng/mL (30-100)
[2024-11-26 16:01] LABS: B-hCG (QUALITATIVE) NEGATIVE (NEGATIVE)
[2024-11-27 05:06] LABS: HEP B SURFACE Ab, Qual Non Reactive (.)
== END | disposition home or self-care (01) ==
LOC: RESCLI 01:36
PROVIDERS: ATTEND Student in an Organized Health Care Education/Training Program
DX: R30.0 Dysuria (principal); E66.9 Obesity, unspecified; R10.2 Pelvic and perineal pain; M25.561 Pain in right knee; J30.9 Allergic rhinitis, unspecified; H61.23 Impacted cerumen, bilateral; E55.9 Vitamin D deficiency, unspecified; N39.0 Urinary tract infection, site not specified; Z79.899 Other long term (current) drug therapy; Z88.8 Allergy status to other drugs, medicaments and biological substances

== ENCOUNTER → 2024-12-04 | Outpatient (CLI) | payer OTHER ==
[~2024-12-04] MED LIST changes: -HEPATITIS B VACCINE RECOMBIN 20 MCG/ML IM SCH
== END | disposition home or self-care (01) ==
LOC: US 16:00
PROVIDERS: ATTEND Family Medicine
DX: R10.2 Pelvic and perineal pain (principal)

== ENCOUNTER 2024-12-09 22:43 | Emergency (ER) | payer OTHER ==
[~2024-12-09] VITALS: Ht 157.4 cm; Wt 68.0 kg
[2024-12-09 23:31] VITALS: BP 154/93
[2024-12-10] MEDS ORDERED: cefTRIAXone Sodium 500 MG VIAL IM ONE (01:25)
[2024-12-10] MEDS ORDERED: metroNIDAZOLE 500 MG TAB PO ONE (01:25)
[2024-12-10] MEDS ORDERED: AZITHROMYCIN 250 MG TAB PO ONE (01:25)
[2024-12-10] MEDS ORDERED: Water, Sterile 10 ML VIAL ONE (02:04)
[2024-12-11 05:06] LABS: HEP B SURFACE Ab, Qual Non Reactive (.)
== END 2024-12-10 02:46 | disposition home or self-care (01) ==
LOC: ED 22:43
PROVIDERS: Internal Medicine
DX: T74.21XA Adult sexual abuse, confirmed, initial encounter (principal); Z79.899 Other long term (current) drug therapy; Z88.1 Allergy status to other antibiotic agents; Z88.2 Allergy status to sulfonamides; Y08.89XA Assault by other specified means, initial encounter; Y93.89 Activity, other specified; Y92.89 Other specified places as the place of occurrence of the external cause; Y99.8 Other external cause status

== ENCOUNTER 2024-12-17 15:13 | Emergency (ER) | payer OTHER ==
[~2024-12-17] VITALS: Ht 162.5 cm; Wt 80.3 kg
[2024-12-17 15:22] VITALS: BP 130/86
[2024-12-17] MEDS ORDERED: SODIUM CHLORIDE 0.9% 1,000 ML IV ONE (15:45)
[2024-12-17 15:54] LABS: BILIRUBIN Negative (Negative); BLOOD 2+ (Negative); CLARITY Cloudy (Clear); COLOR Yellow (Yellow); GLUCOSE Negative (Negative); KETONE Negative (Negative); LEUKO ESTERASE 1+ (Negative); NITRITE Negative (Negative); PH 5.5 (4.5-8.0); UROBILINOGEN 0.2 E.U./dl (0.0-1.0)
[2024-12-17 16:06] LABS: BACTERIA 3+; RBC 41-50 rbc/hpf (0-2)
[2024-12-17 16:07] LABS: BASO # 0.1 10*3/uL (0.0-0.1); BASO % 0.7 % (0.0-1.0); EOS # 0.1 10*3/uL (0.0-0.4); EOS % 0.7 % (1.0-4.0); HEMATOCRIT 40.1 % (37.0-47.0); MEAN CELL VOLUME 90.7 fl (81.0-99.0); MEAN CORPUSCULAR HGB 29.2 pg (27.0-31.0); MEAN CORPUSCULAR HGB CONC 32.2 g/dl (33.0-37.0); MEAN PLATELET VOLUME 10.1 fl (9.6-12.3); MONO # 0.6 10*3/uL (0.1-1.0); MONO % 8.2 % (3.0-9.0); NEUT % 70.2 % (47.0-73.0); PLATELET COUNT AUTOMATED 305 10*3/uL (130-400); RED BLOOD COUNT 4.42 10*6/uL (4.10-5.10); RED CELL DISTRI WIDTH 12.8 % (0-14.5); WHITE BLOOD COUNT 7.1 10*3/uL (4.8-10.8)
[2024-12-17 16:31] LABS: ALKALINE PHOSPHATASE 92 U/L (46-116); BUN 10 mg/dl (9-23); CHLORIDE 105 mmol/L (98-107); LIPASE 30 U/L (12-53); SGPT/ALT 11 U/L (5-49); TOTAL PROTEIN 6.9 gm/dL (6.0-8.0)
[2024-12-17] MEDS ORDERED: CEPHALEXIN500 M1 PO (17:05)
== END 2024-12-17 17:12 | disposition home or self-care (01) ==
LOC: ED 15:13
PROVIDERS: Physician Assistant Medical
DX: N39.0 Urinary tract infection, site not specified (principal); N20.0 Calculus of kidney; F32.A Depression, unspecified; Z79.899 Other long term (current) drug therapy; Z88.1 Allergy status to other antibiotic agents; Z88.2 Allergy status to sulfonamides; Z88.8 Allergy status to other drugs, medicaments and biological substances

== ENCOUNTER → 2025-01-02 | Outpatient (CLI) | payer OTHER ==
[~2025-01-02] MED LIST changes: +HEPATITIS B VACCINE RECOMBIN 20 MCG/ML IM ONE
== END | disposition home or self-care (01) ==
LOC: RESCLI 02:05
PROVIDERS: ATTEND Internal Medicine
DX: Z23 Encounter for immunization (principal); F41.9 Anxiety disorder, unspecified; F32.A Depression, unspecified; F90.9 Attention-deficit hyperactivity disorder, unspecified type

== ENCOUNTER → 2025-01-07 | Outpatient (CLI) | payer OTHER ==
[~2025-01-07] MED LIST changes: -HEPATITIS B VACCINE RECOMBIN 20 MCG/ML IM ONE
== END | disposition home or self-care (01) ==
LOC: RESCLI 01:33
PROVIDERS: ATTEND Family Medicine
DX: N39.0 Urinary tract infection, site not specified (principal); R10.2 Pelvic and perineal pain; R19.7 Diarrhea, unspecified; J30.9 Allergic rhinitis, unspecified; E55.9 Vitamin D deficiency, unspecified; T74.21XD Adult sexual abuse, confirmed, subsequent encounter; X58.XXXD Exposure to other specified factors, subsequent encounter

== ENCOUNTER → 2025-02-04 | Outpatient (CLI) | payer OTHER | END | disposition home or self-care (01) | LOC: RESCLI 02:16 | PROVIDERS: ATTEND Internal Medicine | DX: N94.6 Dysmenorrhea, unspecified (principal); N92.0 Excessive and frequent menstruation with regular cycle; J30.9 Allergic rhinitis, unspecified; E55.9 Vitamin D deficiency, unspecified; H61.20 Impacted cerumen, unspecified ear; Z79.899 Other long term (current) drug therapy ==

== ENCOUNTER 2025-03-23 17:30 | Emergency (ER) | payer OTHER ==
[~2025-03-23] VITALS: Ht 162.5 cm; Wt 81.2 kg
[2025-03-23 17:36] VITALS: BP 165/104
[2025-03-23 18:02] LABS: BILIRUBIN Negative (Negative); BLOOD 2+ (Negative); CLARITY Clear (Clear); COLOR Yellow (Yellow); KETONE Negative (Negative); LEUKO ESTERASE Trace (Negative); NITRITE Negative (Negative); PH 6.5 (4.5-8.0); SPECIFIC GRAVITY 1.010 (1.001-1.030); UROBILINOGEN 0.2 E.U./dl (0.0-1.0)
[2025-03-23] MEDS ORDERED: Ondansetron Hydrochloride 4 MG/2 ML VIAL IV ONE (18:10)
[2025-03-23] MEDS ORDERED: SODIUM CHLORIDE 0.9% 1,000 ML IV ONE (18:10)
[2025-03-23 18:17] LABS: RBC TNTC rbc/hpf (0-2)
[2025-03-23 18:18] LABS: BACTERIA TRACE
[2025-03-23 18:23] LABS: BASO # 0.1 10*3/uL (0.0-0.1); BASO % 0.8 % (0.0-1.0); EOS # 0.1 10*3/uL (0.0-0.4); EOS % 1.1 % (1.0-4.0); MEAN CELL VOLUME 90.3 fl (81.0-99.0); MEAN CORPUSCULAR HGB 29.7 pg (27.0-31.0); MEAN PLATELET VOLUME 10.0 fl (9.6-12.3); MONO # 0.5 10*3/uL (0.1-1.0); MONO % 6.5 % (3.0-9.0); NEUT # 5.2 10*3/uL (2.3-7.9); NEUT % 68.5 % (47.0-73.0); NUCLEATED RED BLOOD CELL 0.0 % (0.0-0.0); NUCLEATED RED BLOOD CELL 0.0 10*3/uL (0.0-0.0); PLATELET COUNT AUTOMATED 320 10*3/uL (130-400); RED CELL DISTRI WIDTH 12.5 % (0-14.5)
[2025-03-23 18:55] LABS: BUN 11 mg/dl (9-23)
[2025-03-23] MEDS ORDERED: POTASSIUM CHLORIDE 20 MEQ TAB PO ONE (19:25)
[2025-03-23] MEDS ORDERED: FLOMAX0.4 MG PO (21:21)
[2025-03-23] MEDS ORDERED: CIPRO500 MG PO (21:21)
[2025-03-23] MEDS ORDERED: Ondansetron4 MG PO (21:21)
[2025-03-23] MEDS ORDERED: PERCOCET 5-3251 EACH PO (21:21)
[2025-03-23] MEDS ORDERED: Acetaminophen/Oxycodone 5 MG/325 MG TABLET PO ONE (21:30)
== END 2025-03-23 21:33 | disposition home or self-care (01) ==
LOC: ED 17:30
PROVIDERS: Nurse Practitioner Family
DX: N13.2 Hydronephrosis with renal and ureteral calculous obstruction (principal); R11.2 Nausea with vomiting, unspecified; F90.9 Attention-deficit hyperactivity disorder, unspecified type; F32.A Depression, unspecified; Z88.1 Allergy status to other antibiotic agents; Z79.899 Other long term (current) drug therapy; Z87.442 Personal history of urinary calculi

== ENCOUNTER → 2025-04-09 | Outpatient (CLI) | payer OTHER ==
[~2025-04-09] MED LIST changes: +FLOMAX0.4 MG PO; +Ondansetron4 MG PO
[2025-04-09 10:00] LABS: BASO # 0.1 10*3/uL (0.0-0.1); BASO % 0.7 % (0.0-1.0); EOS # 0.1 10*3/uL (0.0-0.4); EOS % 1.2 % (1.0-4.0); MEAN CELL VOLUME 90.9 fl (81.0-99.0); MEAN CORPUSCULAR HGB 29.9 pg (27.0-31.0); MEAN PLATELET VOLUME 10.1 fl (9.6-12.3); MONO # 0.6 10*3/uL (0.1-1.0); MONO % 6.8 % (3.0-9.0); NEUT # 5.9 10*3/uL (2.3-7.9); NEUT % 69.4 % (47.0-73.0); NUCLEATED RED BLOOD CELL 0.0 % (0.0-0.0); NUCLEATED RED BLOOD CELL 0.0 10*3/uL (0.0-0.0); PLATELET COUNT AUTOMATED 326 10*3/uL (130-400); RED CELL DISTRI WIDTH 12.8 % (0-14.5)
[2025-04-09 10:01] LABS: BILIRUBIN Negative (Negative); BLOOD Negative (Negative); CLARITY Clear (Clear); COLOR Yellow (Yellow); KETONE Trace (Negative); LEUKO ESTERASE Trace (Negative); NITRITE Negative (Negative); PH 6.5 (4.5-8.0); SPECIFIC GRAVITY 1.025 (1.001-1.030); UROBILINOGEN 1.0 E.U./dl (0.0-1.0)
[2025-04-09 10:19] LABS: BUN 8 mg/dl (9-23)
[2025-04-09 10:52] LABS: BACTERIA 3+; MUCOUS 3+
== END | disposition home or self-care (01) ==
LOC: LAB 08:51 → RESCLI 08:51
PROVIDERS: ATTEND Family Medicine
DX: N20.0 Calculus of kidney (principal)

== ENCOUNTER → 2025-04-16 | Outpatient (CLI) | payer OTHER | END | disposition home or self-care (01) | LOC: RESCLI 04:14 | PROVIDERS: ATTEND Internal Medicine | DX: N20.0 Calculus of kidney (principal); R11.2 Nausea with vomiting, unspecified; R50.9 Fever, unspecified; N39.0 Urinary tract infection, site not specified; Z79.899 Other long term (current) drug therapy; Z88.8 Allergy status to other drugs, medicaments and biological substances; Z98.890 Other specified postprocedural states ==